=== PATIENT | male | born 1955 | race Caucasian/White ===

== ENCOUNTER 2021-03-31 15:32 | Emergency (ER) | payer MEDICARE, OTHER ==
[~2021-03-31 15:32] MED LIST: AMLODIPINE BESYL5 MG PO; ASPIRIN EC81 MG PO; B 12 PO; CITALOPRAM HBR40 MG PO; CO Q-1075 MG PO; LIPITOR TAB 1010 MG PO; METOPROLOL TART25 MG PO; NORCO 5-325 TA1 EACH PO; PROTONIX40 MG PO
[2021-03-31 16:46] LABS: HEMOGLOBIN 15.1 gm/dl (14.0-17.5); RED BLOOD COUNT 4.89 M/UL (4.20-5.50); WHITE BLOOD COUNT 6.5 K/UL (4.5-11.0)
[2021-03-31 17:02] LABS: BUN/CREATININE RATIO 13 (0-10)
[2021-03-31] MEDS ORDERED: HYDROCODON-ACE1 EAC6 PO (19:33)
== END 2021-03-31 20:00 | disposition home or self-care (01) ==
LOC: ER1 15:32
PROVIDERS: Student in an Organized Health Care Education/Training Program
DX: S32.029A Unspecified fracture of second lumbar vertebra, initial encounter for closed fracture (principal); I25.10 Atherosclerotic heart disease of native coronary artery without angina pectoris; C95.91 Leukemia, unspecified, in remission; W20.8XXA Other cause of strike by thrown, projected or falling object, initial encounter
CPT/HCPCS: 70450; 71045; 72131; 80053; 82550; 82553; 83874; 84484; 85025; 93005; 96374; 96375; 96376; 99284; J1170; J1642; J2270

== ENCOUNTER → 2021-04-14 | Outpatient (CLI) | payer MEDICARE, OTHER ==
[~2021-04-14] MED LIST changes: +HYDROCODON-ACE1 EAC6 PO
== END ==
LOC: EXRD 08:20 → KOH-I 08:20 → EXRD 08:30
DX: M48.54XA Collapsed vertebra, not elsewhere classified, thoracic region, initial encounter for fracture (principal); M50.91 Cervical disc disorder, unspecified, high cervical region; M48.02 Spinal stenosis, cervical region; M25.78 Osteophyte, vertebrae; M85.88 Other specified disorders of bone density and structure, other site
CPT/HCPCS: 72141; 72146; 72148; 77080

== ENCOUNTER → 2021-06-17 | Outpatient (CLI) | payer MEDICARE, OTHER | LOC: KOH-I 08:00 | DX: M54.50 Low back pain, unspecified (principal); M47.814 Spondylosis without myelopathy or radiculopathy, thoracic region; I71.9 Aortic aneurysm of unspecified site, without rupture; M51.36 Other intervertebral disc degeneration, lumbar region; S22.088A Other fracture of T11-T12 vertebra, initial encounter for closed fracture | CPT/HCPCS: 72146; 72148 ==

== ENCOUNTER → 2022-03-01 | Outpatient (CLI) | payer MEDICARE, OTHER | LOC: KOH-I 12:55 | DX: M51.16 Intervertebral disc disorders with radiculopathy, lumbar region (principal); M51.37 Other intervertebral disc degeneration, lumbosacral region | CPT/HCPCS: 72148 ==